=== PATIENT | female | born 1995 ===

== ENCOUNTER 2019-09-18 07:20 | Inpatient (IN) ==
[2019-09-18] MEDS ORDERED: hydrALAZINE 20 MG/1 ML VIAL ONE (08:53)
[2019-09-18] MEDS ORDERED: hydrALAZINE 20 MG/1 ML VIAL IV ONE ×2 (08:55→22:24)
[2019-09-18] MEDS ORDERED: ONDANSETRON 4 MG/2 ML VIAL IV PRN (09:01)
[2019-09-18] MEDS ORDERED: LIDOCAINE 1% 50 ML VIAL MISC INJ ONE (09:01)
[2019-09-18] MEDS ORDERED: BUTORPHANOL 2 MG/ML VIAL IV PRN (09:01)
[2019-09-18] MEDS ORDERED: MEPERIDINE 50 MG/1 ML VIAL IM PRN (09:01)
[2019-09-18] MEDS ORDERED: miSOPROStoL 200 MCG TABLET VAG PRN (09:01)
[2019-09-18] MEDS ORDERED: LACTATED RINGERS 1,000 ML IV SCH (09:30)
[2019-09-18 09:31] LABS: Basophils % 0.4 % (0.0-0.8); Eosinophils # 0.1 10*3/uL (0.0-0.87); Hematocrit 31.4 VOL% (35.7-47.0); Hemoglobin 10.5 GM/DL (12.0-16.0); Immature Granulocytes % 0.9 %; Immature Granulocytes Absolute 0.06 #; Lymphocytes # 2.1 10*3/uL (1.4-4.0); Lymphocytes % 30.7 % (21.3-54.2); Mean Corpuscular HGB Conc 33.4 GM/DL (32-36); Mean Corpuscular Volume 87.5 FL (87-102); Monocytes % 9.3 % (1.7-12.7); Neutrophils % 57.7 % (38.7-73.9); Platelet Count 138 T/CUMM (130-400); Red Blood Count 3.59 MC/CUMM (3.8-5.5); Red Cell Distribution Width 13.7 % (9.3-17.3); White Blood Count 6.7 T/CUMM (4-12)
[2019-09-18 09:45] LABS: INR 0.8; PT Patient Result 9.2 SECS (9.6-12.2); Partial Thromboplastin Time 25.1 SECS (20.8-36.0)
[2019-09-18 09:54] LABS: Alanine Aminotransferase 12 U/L (13-56); Albumin 2.5 G/DL (3.4-5.0); Alkaline Phosphatase 282 U/L (45-117); Aspartate Amino Transferase 18 U/L (0-37); Bilirubin,Total < 0.39 MG/DL (0.2-1.0); Blood Urea Nitrogen 12 MG/DL (7-18); Calcium 8.1 MG/DL (8.5-10.1); Estimated Glom Filtration Rate 142 ML/MIN; Glucose 68 MG/DL (74-106); Osmolality,Calculated 278.3 MOS/KG (273-304); Total Protein 6.5 G/DL (6.4-8.3); Uric Acid 6.3 MG/DL (2.6-6.0)
[2019-09-18] MEDS ORDERED: ACETAMINOPHEN 500 MG TABLET PO ONE (10:03)
[2019-09-18] MEDS ORDERED: CITRIC ACID/SODIUM CITRATE 30 ML UDCUP PO ONE (13:18)
[2019-09-18] MEDS ORDERED: ePHEDrine 50 MG/ML AMP IV PRN (13:18)
[2019-09-18] MEDS ORDERED: FAMOTIDINE 20 MG/2 ML VIAL IV ONE (13:18)
[2019-09-18] MEDS ORDERED: LACTATED RINGERS 1,000 ML IV ONE (13:18)
[2019-09-18] MEDS ORDERED: PROMETHAZINE 25 MG/1 ML VIAL IM ONE (13:19)
[2019-09-18] MEDS ORDERED: diphenhydrAMINE 50 MG/1 ML VIAL IV PRN ×2 (13:19)
[2019-09-18] MEDS ORDERED: hydrOXYzine HCL 25 MG/1 ML VIAL IM PRN (13:19)
[2019-09-18] MEDS ORDERED: NALOXONE 0.4 MG/ML VIAL IV PRN (13:19)
[2019-09-18] MEDS ORDERED: OXYTOCIN/LR 20 UNIT/1,000 ML BAG IV SCH (13:20)
[2019-09-18] MEDS ORDERED: fentaNYL 2 MCG/ROPIV 0.2% EPID 100 ML EPIDURAL SCH (13:30)
[2019-09-18] MEDS: LACTATED RINGERS 1,000 ML IV SCH ×2 (14:15→22:30)
[2019-09-18 15:55] LABS: Apearance,Urine CLEAR (Clear); Bilirubin,Urine Negative (Negative); Blood, Urine Negative (Negative); Glucose,Urine (UA) Negative (Negative); Hyaline Casts,Urine 1 /LPF (0-3); Ketones,Urine Negative (Negative); Mucus,Urine Occasional /LPF (Occasional); Nitrite,Urine Negative (Negative); Protein,Urine Negative; RBC,Urine <1 /HPF (0-4); Squamous Epithelial Cell,Urine Occasional /HPF (0-10); Urine Color Straw (Yellow); Urine Specific Gravity 1.009 (1.001-1.035); Urine Urobilinogen < 2.0 EU/DL (0.2-1.0); WBC,Urine 1 /HPF (0-6)
[2019-09-18] MEDS ORDERED: ACETAMINOPHEN 325 MG TABLET PO ONE (16:13)
[2019-09-18] MEDS ORDERED: OXYTOCIN/LR 30 UNIT/1,000 ML BAG IV ONE (21:33)
[2019-09-18] MEDS ORDERED: ACETAMINOPHEN 325 MG TABLET PO PRN (23:16)
[2019-09-18] MEDS ORDERED: METHYLERGONOVINE 0.2 MG/1 ML AMP ONE (23:31)
[2019-09-18] MEDS ORDERED: TRANEXAMIC ACID 1,000 MG/10 ML VIAL ONE (23:31)
[2019-09-18] MEDS ORDERED: OXYTOCIN/LR 20 UNIT/1,000 ML BAG IV ONE (23:31)
[2019-09-18] MEDS ORDERED: miSOPROStoL 200 MCG TABLET ONE (23:31)
[2019-09-18] MEDS ORDERED: CARBOPROST TROMETHAMINE 250 MCG/ML AMP IM ONE (23:32)
[2019-09-19] MEDS ORDERED: BENZOCAINE 20%/MENTHOL 0.5% SPRAY 56 GM CAN TOP PRN (01:23)
[2019-09-19] MEDS ORDERED: WITCH HAZEL PADS 100/JAR TOP PRN (01:23)
[2019-09-19] MEDS ORDERED: BISACODYL 10 MG SUPP RECTAL PRN (01:23)
[2019-09-19] MEDS ORDERED: OXYTOCIN/LR 20 UNIT/1,000 ML BAG IV ONE (01:23)
[2019-09-19] MEDS ORDERED: RHO(D) IMMUNE GLOBULIN 300 MCG SYRINGE IM ONE (01:23)
[2019-09-19] MEDS ORDERED: LANOLIN 50% CREAM 0.3 OZ TUBE TOP PRN (01:23)
[2019-09-19] MEDS ORDERED: oxyCODONE/ACETAMINOPHEN 5-325 MG TABLET PO PRN ×2 (01:23)
[2019-09-19] MEDS ORDERED: MEASLES/MUMPS/RUBELLA VACCINE 0.5 ML VIAL SUBCUT ONE (01:23)
[2019-09-19] MEDS ORDERED: DIPH/TET/ACEL PERT BOOSTER VACCINE 0.5 ML VIAL IM ONE (01:23)
[2019-09-19] MEDS ORDERED: ONDANSETRON 4 MG/2 ML VIAL IV PRN (01:23)
[2019-09-19] MEDS ORDERED: HYDROCORTISONE 2.5% RECTAL CREAM 30 GM TUBE TOP PRN (01:23)
[2019-09-19] MEDS ORDERED: ACETAMINOPHEN 325 MG TABLET PO PRN (01:23)
[2019-09-19 05:56] LABS: Basophils % 0.3 % (0.0-0.8); Eosinophils % 0.1 % (0.00-10.9); Hematocrit 28.2 VOL% (35.7-47.0); Hemoglobin 9.4 GM/DL (12.0-16.0); Immature Granulocytes % 0.7 %; Lymphocytes # 1.7 10*3/uL (1.4-4.0); Lymphocytes % 11.7 % (21.3-54.2); Mean Corpuscular HGB Conc 33.3 GM/DL (32-36); Mean Corpuscular Volume 87.6 FL (87-102); Mean Platelet Volume 13.9 FL (9.6-12.0); Neutrophils % 83.2 % (38.7-73.9); Platelet Count 140 T/CUMM (130-400); Red Blood Count 3.22 MC/CUMM (3.8-5.5); Red Cell Distribution Width 13.9 % (9.3-17.3); White Blood Count 14.5 T/CUMM (4-12)
[2019-09-19 06:46] LABS: Total Cells Counted 0
[2019-09-19] MEDS: DOCUSATE SODIUM 100 MG CAPSULE PO SCH ×3 (09:36→21:38)
[2019-09-19] MEDS: IBUPROFEN 800 MG TABLET PO PRN (19:35)
[2019-09-20] MEDS: DOCUSATE SODIUM 100 MG CAPSULE PO SCH ×2 (07:58→11:29)
[2019-09-20] MEDS: IBUPROFEN 800 MG TABLET PO PRN (07:58)
[2019-09-20 08:38] VITALS: BP 137/89
[2019-09-20] MEDS ORDERED: INFLUENZA VIRUS VACCINE 0.5 ML SYRINGE IM ONE (10:50)
== END 2019-09-20 13:25 | disposition home or self-care (01) | DRG 560 ==
LOC: N.LDOUT 07:20 → N.LD 07:22 → N.OB 09-19 04:27
PROVIDERS: ADMIT Obstetrics & Gynecology; ATTEND Obstetrics & Gynecology

== ENCOUNTER 2021-04-06 10:59 | Inpatient (IN) ==
[2021-04-06] MEDS ORDERED: ONDANSETRON 4 MG/2 ML VIAL IV PRN ×2 (12:17→16:52)
[2021-04-06] MEDS ORDERED: AMPICILLIN INJ 2,000 MG in SODIUM CHLORIDE 0.9% 100 ML IV STA (12:28)
[2021-04-06 12:43] LABS: Basophils # 0.1 10*3/uL (0.0-0.2); Eosinophils # 0.1 10*3/uL (0.0-0.87); Eosinophils % 0.8 % (0.00-10.9); Hematocrit 32.3 VOL% (35.7-47.0); Hemoglobin 11.1 GM/DL (12.0-16.0); Immature Granulocytes % 2.1 %; Immature Granulocytes Absolute 0.13 #; Lymphocytes # 1.9 10*3/uL (1.4-4.0); Lymphocytes % 30.6 % (21.3-54.2); Mean Corpuscular HGB Conc 34.4 GM/DL (32-36); Mean Corpuscular Volume 87.5 FL (87-102); Mean Platelet Volume 12.2 FL (9.6-12.0); Monocytes % 9.6 % (1.7-12.7); Neutrophils % 55.9 % (38.7-73.9); Platelet Count 188 T/CUMM (130-400); Red Blood Count 3.69 MC/CUMM (3.8-5.5); Red Cell Distribution Width 12.9 % (9.3-17.3); White Blood Count 6.1 T/CUMM (4-12)
[2021-04-06] MEDS: LACTATED RINGERS 1,000 ML IV SCH ×2 (12:51→15:23)
[2021-04-06 12:58] LABS: Albumin 2.6 G/DL (3.4-5.0); Bilirubin,Total 0.4 MG/DL (0.2-1.0); Calcium 8.8 MG/DL (8.5-10.1); Osmolality,Calculated 273.5 MOS/KG (273-304); Potassium 3.7 MMOL/L (3.5-5.1); Total Protein 7.5 G/DL (6.4-8.2)
[2021-04-06] MEDS ORDERED: ceFAZolin 2,000 MG/50 ML DUPLEX IV ONE (13:41)
[2021-04-06] MEDS ORDERED: OXYTOCIN 10 UNIT/ML VIAL IM ONE (14:00)
[2021-04-06] MEDS ORDERED: OXYTOCIN/LR 30 UNIT/1,000 ML BAG IV ONE (14:00)
[2021-04-06] MEDS ORDERED: FAMOTIDINE 20 MG/2 ML VIAL IV ONE (14:00)
[2021-04-06] MEDS ORDERED: CITRIC ACID/SODIUM CITRATE 30 ML UDCUP PO ONE (14:00)
[2021-04-06] MEDS ORDERED: miSOPROStoL 200 MCG TABLET ONE (14:21)
[2021-04-06] MEDS ORDERED: CARBOPROST TROMETHAMINE 250 MCG/ML AMP IM ONE (14:22)
[2021-04-06] MEDS ORDERED: METHYLERGONOVINE 0.2 MG/1 ML AMP ONE (14:22)
[2021-04-06] MEDS ORDERED: BUPIVACAINE SPINAL 0.75% 2 ML AMP SPINAL ONE (14:28)
[2021-04-06] MEDS ORDERED: ONDANSETRON 4 MG/2 ML VIAL ONE (14:28)
[2021-04-06] MEDS ORDERED: PHENYLEPHRINE 1 MG/10 ML SYRINGE IV ONE ×2 (15:55→16:31)
[2021-04-06] MEDS ORDERED: KETOROLAC 30 MG/1 ML VIAL ONE ×2 (16:05)
[2021-04-06 16:27] LABS: Cord Arterial Blood HCO3 22.3 MMOL/L
[2021-04-06 16:30] LABS: Cord Venous Blood HCO3 23.3 MMOL/L; Cord Venous Blood PCO2 47.6 MMHG; Cord Venous Blood PO2 27.9
[2021-04-06 16:30] LABS: Bacteria,Urine Occasional /HPF (Few); Bilirubin,Urine Negative (Negative); Blood, Urine Negative (Negative); Glucose,Urine (UA) Negative (Negative); Hyaline Casts,Urine 1 /LPF (0-3); Ketones,Urine Negative (Negative); Mucus,Urine Occasional /LPF (Occasional); Nitrite,Urine Negative (Negative); Protein,Urine Negative; RBC,Urine <1 /HPF (0-4); Squamous Epithelial Cell,Urine Occasional /HPF (0-10); Urine Appearance CLEAR (Clear); Urine Color Yellow (Yellow); Urine Specific Gravity 1.015 (1.001-1.035)
[2021-04-06] MEDS ORDERED: HYDROmorphone 2 MG/1 ML VIAL IV PRN (16:47)
[2021-04-06] MEDS ORDERED: diphenhydrAMINE 50 MG/1 ML VIAL IV PRN (16:47)
[2021-04-06] MEDS ORDERED: hydrOXYzine HCL 25 MG/1 ML VIAL IM PRN (16:47)
[2021-04-06] MEDS ORDERED: ACETAMINOPHEN 325 MG TABLET PO PRN (16:52)
[2021-04-06] MEDS ORDERED: OXYTOCIN/LR 20 UNIT/1,000 ML BAG IV ONE (16:52)
[2021-04-06] MEDS ORDERED: MAGNESIUM HYDROXIDE SUSP 30 ML UDCUP PO PRN (16:52)
[2021-04-06] MEDS ORDERED: RHO(D) IMMUNE GLOBULIN 300 MCG SYRINGE IM ONE (16:52)
[2021-04-06] MEDS ORDERED: SIMETHICONE CHEW 80 MG TABLET PO PRN (16:52)
[2021-04-06] MEDS ORDERED: LACTATED RINGERS 1,000 ML IV SCH (17:00)
[2021-04-06] MEDS ORDERED: ACETAMINOPHEN 500 MG TABLET PO SCH ×2 (20:00)
[2021-04-06] MEDS: DOCUSATE SODIUM 100 MG CAPSULE PO SCH (21:43)
[2021-04-06] MEDS: KETOROLAC 30 MG/1 ML VIAL IV SCH (21:44)
[2021-04-06] MEDS: ACETAMINOPHEN 500 MG TABLET PO SCH (21:44)
[2021-04-06 22:49] LABS: Basophils % 0.3 % (0.0-0.8); Eosinophils # 0.1 10*3/uL (0.0-0.87); Eosinophils % 0.9 % (0.00-10.9); Hematocrit 27.4 VOL% (35.7-47.0); Hemoglobin 9.5 GM/DL (12.0-16.0); Immature Granulocytes % 0.8 %; Immature Granulocytes Absolute 0.07 #; Lymphocytes % 23.5 % (21.3-54.2); Mean Corpuscular HGB Conc 34.7 GM/DL (32-36); Mean Corpuscular Volume 88.4 FL (87-102); Mean Platelet Volume 12.1 FL (9.6-12.0); Monocytes % 5.8 % (1.7-12.7); Neutrophils % 68.7 % (38.7-73.9); Platelet Count 177 T/CUMM (130-400); Red Cell Distribution Width 13.1 % (9.3-17.3); White Blood Count 8.6 T/CUMM (4-12)
[2021-04-06] MEDS ORDERED: KETOROLAC 30 MG/1 ML VIAL IV SCH ×2 (23:00)
[2021-04-07] MEDS: ACETAMINOPHEN 500 MG TABLET PO SCH ×3 (03:40→16:06)
[2021-04-07] MEDS: KETOROLAC 30 MG/1 ML VIAL IV SCH ×2 (03:40→10:11)
[2021-04-07 06:16] LABS: Basophils % 0.5 % (0.0-0.8); Eosinophils # 0.1 10*3/uL (0.0-0.87); Eosinophils % 1.1 % (0.00-10.9); Hematocrit 25.2 VOL% (35.7-47.0); Hemoglobin 8.2 GM/DL (12.0-16.0); Immature Granulocytes % 0.7 %; Immature Granulocytes Absolute 0.04 #; Lymphocytes # 1.9 10*3/uL (1.4-4.0); Lymphocytes % 34.1 % (21.3-54.2); Mean Corpuscular HGB Conc 32.5 GM/DL (32-36); Mean Platelet Volume 11.8 FL (9.6-12.0); Monocytes % 8.3 % (1.7-12.7); Neutrophils % 55.3 % (38.7-73.9); Platelet Count 143 T/CUMM (130-400); Red Cell Distribution Width 13.1 % (9.3-17.3); White Blood Count 5.5 T/CUMM (4-12)
[2021-04-07 06:36] LABS: Eosinophils 2 % (0-10); Hypochromasia 1+; Lymphocytes 40 % (20-55); Microcytosis 1+; Platelet Estimate Adequate; Segmented Neutrophils 55 % (50-85); Total Cells Counted 100
[2021-04-07] MEDS: METOCLOPRAMIDE 10 MG TABLET PO SCH ×2 (09:00→16:06)
[2021-04-07] MEDS: FERROUS SULFATE 325 MG TABLET PO SCH ×2 (09:01→22:13)
[2021-04-07] MEDS: MULTIVITAMIN (PRENATAL) TABLET PO SCH (09:01)
[2021-04-07] MEDS: IBUPROFEN 800 MG TABLET PO PRN ×2 (09:01→22:13)
[2021-04-07] MEDS: DOCUSATE SODIUM 100 MG CAPSULE PO SCH ×2 (09:01→22:13)
[2021-04-08] MEDS: METOCLOPRAMIDE 10 MG TABLET PO SCH ×2 (00:04→08:44)
[2021-04-08] MEDS: DOCUSATE SODIUM 100 MG CAPSULE PO SCH (07:55)
[2021-04-08] MEDS: FERROUS SULFATE 325 MG TABLET PO SCH (07:55)
[2021-04-08] MEDS: IBUPROFEN 800 MG TABLET PO PRN (07:55)
[2021-04-08] MEDS: MULTIVITAMIN (PRENATAL) TABLET PO SCH (07:55)
[2021-04-08 08:42] VITALS: BP 119/69
== END 2021-04-08 13:12 | disposition home or self-care (01) | DRG 540 ==
LOC: N.LDOUT 10:59 → N.LD 11:01 → N.OB 18:26
PROVIDERS: ADMIT Obstetrics & Gynecology; ATTEND Obstetrics & Gynecology
PROC: LDCSECT (ICD-10-PCS; 2021-04-06 14:00)